=== PATIENT | female | born 1980 | race Caucasian/White ===

== ENCOUNTER 2017-04-11 21:30 | Emergency (ER) | payer OTHER ==
[~2017-04-11] VITALS: Ht 160 cm; Wt 73.9 kg
--- NOTE | ~2017-04-11 | CR229 ---
[facility]. [facility] A Service of [facility] & [facility] RADIOLOGY TEXT RESULTS PATIENT: DARA AMYEN LOCATION: SED : 76 UNIT #: [id number] AGE: [address]: Santo Cisneros MD SEX: F ORDER DR: [id number] [address] [address] [id number] MR#: [id number] Acc #: [id number] NAME: DARA MAYEN : 1980 SEX: F STUDY DATE/TIME: 04/11/2017 23:32 UNIT: SED ROOM: STUDY DESCRIPTION: CR Shoulder Min 2 View Lt Attending Physician: Santo Cisneros M.D. Ordering Physician: Srini Chun P.A.-C. MEDICAL IMAGING REPORT This report is preliminary unless electronic signature is present. EXAM Left shoulder, 3 views. HISTORY Shoulder pain and swelling for 4 days. No injury. FINDINGS AP view with internal and external rotation of the shoulder girdle shows satisfactory relationship of the humeral head and glenoid fossa. The joint space is normal. There is no identifiable fracture or dislocation or bony destructive process about the shoulder girdle anatomy. The acromioclavicular joint is normal. There is no radiopaque foreign body in the region. IMPRESSION Normal shoulder. Dictated by... Trevon Croft M.D. THIS IS AN ELECTRONICALLY VERIFIED REPORT Trevon Croft M.D. at 04/12/2017 4:21 AM DFL/ezekiel TD: 04/12/2017 02:38 JOB #: [id number] MEDICAL IMAGING REPORT Page 1 of 1
[2017-04-11] MEDS ORDERED: NO MEDICATIONS (22:31)
== END 2017-04-12 01:11 | disposition home or self-care (01) ==
LOC: SED 21:30 → EDSEX 21:30 → SED 21:45
DX: M75.52 Bursitis of left shoulder (principal); F17.200 Nicotine dependence, unspecified, uncomplicated
CPT/HCPCS: 73030; 99283